=== PATIENT | female | born 1955 ===

== ENCOUNTER 2017-08-01 07:28 | Emergency (ER) | payer SELFPAY ==
[2017-08-01 07:41] VITALS: BP 159/86; PULSE 87; RESP 18; TEMP 98.4; O2SAT 100
--- NOTE | 2017-08-01 08:07 | C.PDOC ---
<Karissa Barahona - Last Filed: 08/01/17 08:06> <Huber Baumann - Last Filed: 08/01/17 09:31> Chief Complaint (Nursing): Medical Clearance Past Medical History - Social History Hx Alcohol Use: No Hx Substance Use: No - Immunization History Hx Tetanus Toxoid Vaccination: No Hx Influenza Vaccination: No Hx Pneumococcal Vaccination: No <Karissa Barahona - Last Filed: 08/01/17 08:06> Family History: States: No Known Family Hx <Huber Baumann - Last Filed: 08/01/17 09:31> Vital Signs: Last Vital Signs Temp 98.4 F 08/01/17 07:41 Pulse 87 08/01/17 07:41 Resp 18 08/01/17 07:41 BP 159/86 H 08/01/17 07:41 Pulse Ox 100 08/01/17 08:07 ED Course And Treatment O2 Sat by Pulse Oximetry: 100 <Karissa Barahona - Last Filed: 08/01/17 08:06> Disposition - Disposition Disposition Time: 08:06 <Karissa Barahona - Last Filed: 08/01/17 08:06> <uHber Baumann - Last Filed: 08/01/17 09:31> - Disposition Disposition: HOME/ ROUTINE Condition: STABLE Additional Instructions: Follow up with your OMD.Orthoepdist. Preadmission testing should be done in [facility] or by your PMD. Return to ED if feel worse. Forms: Gen Discharge Inst Setswana, [facility] (Cypriot) Print Language: MALAGASY - Clinical Impression Clinical Impression: Medical assessment
--- NOTE | 2017-08-01 14:31 | C.PDOC ---
History Of Present Illness 61 y/o female presents to ED requesting pre-op tests to be done with be care here for her knee replacement surgery at [facility]. Notes that surgery scheduled for 08/05/17. Denies any physical complaints at this time. Chief Complaint (Nursing): Medical Clearance History Per: Patient History/Exam Limitations: no limitations Severity: None Pain Scale Rating Of: 0 Recent travel outside of the [place]: No Additional History Per: Patient Past Medical History Reviewed: Historical Data, Nursing Documentation, Vital Signs Vital Signs: Last Vital Signs Temp 98.4 F 08/01/17 07:41 Pulse 87 08/01/17 07:41 Resp 18 08/01/17 07:41 BP 159/86 H 08/01/17 07:41 Pulse Ox 100 08/01/17 17:41 Family History: States: No Known Family Hx - Social History Hx Alcohol Use: No Hx Substance Use: No - Immunization History Hx Tetanus Toxoid Vaccination: No Hx Influenza Vaccination: No Hx Pneumococcal Vaccination: No Review Of Systems Except As Marked, All Systems Reviewed And Found Negative. Constitutional: Negative for: Fever, Chills Cardiovascular: Negative for: Chest Pain, Palpitations Respiratory: Negative for: Shortness of Breath Physical Exam - Physical Exam Appears: Non-toxic, No Acute Distress Skin: Normal Color, Warm, Dry Head: Atraumatic, Normacephalic Eye(s): bilateral: Normal Inspection Oral Mucosa: Moist Neck: Normal ROM, Supple Cardiovascular: Rhythm Regular Respiratory: No Accessory Muscle Use Extremity: Normal ROM Neurological/Psych: Oriented x3, Normal Speech ED Course And Treatment O2 Sat by Pulse Oximetry: 100 (RA) Pulse Ox Interpretation: Normal Progress Note: It was explained to patient that she needs to have the pre-op tests done at [facility]. Patient is being discharged home, and was advised to follow up at [facility] for further evaluation. Disposition - Disposition Disposition: HOME/ ROUTINE Disposition Time: 08:08 Condition: STABLE Additional Instructions: Follow up with your OMD.Orthoepdist. Preadmission testing should be done in [facility] or by your PMD. Return to ED if feel worse. Forms: Gen Discharge Inst Polish, [facility] (Icelandic) Print Language: GREENLANDIC - Clinical Impression Clinical Impression: Medical assessment - PA / BOAT CAPTAIN / Resident Statement MD/DO has reviewed & agrees with the documentation as recorded. - Scribe Statement The provider has reviewed the documentation as recorded by the Dhruvibmolly Alexandra All medical record entries made by the Renay were at my direction and personally dictated by me. I have reviewed the chart and agree that the record accurately reflects my personal performance of the history, physical exam, medical decision making, and the department course for this patient. I have also personally directed, reviewed, and agree with the discharge instructions and disposition.
== END 2017-08-01 08:17 | disposition home or self-care (01) ==
LOC: C.ER 07:28
DX: Z00.00 Encounter for general adult medical examination without abnormal findings (principal)